=== PATIENT | male | born 1975 | race African-American/Black ===

== ENCOUNTER 2017-10-22 13:20 | Emergency (ER) | payer MEDICAID, OTHER ==
[2017-10-22] MEDS: SOD CHLORIDE 0.9% 1,000 ML IV (14:01)
[2017-10-22] MEDS: INSULIN LISPRO 100 UNIT/ML VIAL SC (14:06)
[2017-10-22 14:20] LABS: ANION GAP 12 (8-16); BLOOD UREA NITROGEN 17 mg/dl (7-20); CALCIUM 9.3 mg/dl (8.4-10.2); CARBON DIOXIDE 28 mmol/L (21-31); CHLORIDE 103 mmol/L (97-110); CREATININE 1.44 mg/dl (0.61-1.24); GLUCOSE 303 mg/dl (70-220); POTASSIUM 4.6 mmol/L (3.5-5.1); SODIUM 138 mmol/L (135-144)
== END 2017-10-22 15:11 | disposition home or self-care (01) ==
LOC: E/R 13:20
DX: N28.9 Disorder of kidney and ureter, unspecified (principal); E11.65 Type 2 diabetes mellitus with hyperglycemia; Z79.4 Long term (current) use of insulin
CPT/HCPCS: 80048; 82962; 96372; 99284-25

== ENCOUNTER 2017-11-19 10:47 | Emergency (ER) | payer MEDICAID | END 2017-11-19 12:25 | disposition home or self-care (01) | LOC: FTE 10:47 | DX: E11.9 Type 2 diabetes mellitus without complications (principal); Z79.4 Long term (current) use of insulin | CPT/HCPCS: 99283; Z7502 ==

== ENCOUNTER 2017-12-26 16:38 | Emergency (ER) | payer MEDICAID, OTHER ==
[2017-12-26 19:08] LABS: ADD MAN DIFF? NO
[2017-12-26 19:09] LABS: WHITE BLOOD COUNT 6.4 10^3/ul (4.8-10.8)
[2017-12-26 19:09] LABS: BASOPHILS % 0.6 % (0.0-2.0); EOSINOPHILS # 0.1 10^3/ul (0.0-0.5); EOSINOPHILS % 1.3 % (0.0-7.0); HEMATOCRIT 39.7 % (42.0-52.0); HEMOGLOBIN 13.3 g/dl (14.0-18.0); LYMPHOCYTES % 31.4 % (15.0-51.0); MEAN CORPUSCULAR HEMOGLOBIN 27.3 pg (29.0-33.0); MEAN CORPUSCULAR HGB CONC 33.5 g/dl (32.0-37.0); MEAN CORPUSCULAR VOLUME 81.4 fl (82.0-101.0); MEAN PLATELET VOLUME 11.1 fl (7.4-10.4); MONOCYTE # 0.4 10^3/ul (0.3-0.9); NEUTROPHIL # 3.9 10^3/ul (1.6-7.5); NEUTROPHILS % 60.5 % (39.0-77.0); PLATELET COUNT 218 10^3/UL (140-415); RED BLOOD COUNT 4.88 10^6/ul (4.70-6.10); RED CELL DISTRIBUTION WIDTH 12.3 % (11.5-14.5)
[2017-12-26] MEDS: SOD CHLORIDE 0.9% 1,000 ML IV (19:12)
[2017-12-26 19:32] LABS: ANION GAP 9 (5-13); BLOOD UREA NITROGEN 23 mg/dl (7-20); CALCIUM 9.4 mg/dl (8.4-10.2); CARBON DIOXIDE 27 mmol/L (21-31); CHLORIDE 96 mmol/L (97-110); CREATININE 1.35 mg/dl (0.61-1.24); Estimated GFR > 60 mL/min (>60); POTASSIUM 4.9 mmol/L (3.5-5.1); SODIUM 132 mmol/L (135-144)
[2017-12-26 19:37] LABS: GLUCOSE 623 mg/dl (70-220)
[2017-12-26 19:40] LABS: MODE ROOM AIR; MetHgb Venous 0.3 %; Sample Type Blood venous; Site VENOUS LINE; Venous COHb 0.6 %; Venous Fraction OxyHgb 61.6 %; Venous Oxygen Sat 62.2 mmHG (55.0-75.0); Venous Total Hemglobin 14.1 g/dl
[2017-12-26] MEDS: INSULIN GLARGINE [LANTus] (100 UNITS/ML) SYG SC (20:38)
== END 2017-12-26 22:00 | disposition home or self-care (01) ==
LOC: E/R 16:38
DX: E11.65 Type 2 diabetes mellitus with hyperglycemia (principal); Z79.4 Long term (current) use of insulin
CPT/HCPCS: 36415; 80048; 82803; 82962; 85025; 96372; 99284-25